=== PATIENT | male | born 1980 | race Hispanic/Latino ===

== ENCOUNTER → 2022-04-01 | Outpatient (CLI) | payer SELFPAY | LOC: M OUTALCOH 07:55 | PROVIDERS: ATTEND Psychiatry & Neurology Psychiatry | DX: Z13.30 Encounter for screening examination for mental health and behavioral disorders, unspecified (principal) ==

== ENCOUNTER 2022-04-08 09:29 | Outpatient (RCR) | payer SELFPAY | END 2022-04-10 | LOC: M OUTALCOH 09:29 | PROVIDERS: ATTEND Psychiatry & Neurology Psychiatry | DX: F12.20 Cannabis dependence, uncomplicated (principal); F17.200 Nicotine dependence, unspecified, uncomplicated ==